=== PATIENT | male | born 1990 | race Two or more races ===

== ENCOUNTER 2024-10-01 00:58 | Emergency (ER) | payer MEDICAID, SELFPAY ==
[2024-10-01 01:03] VITALS: BMI 19.8
--- NOTE | 2024-10-01 01:31 | EKG_ITS ---
[facility] Test Date: 2024-10-01 Pat Name: BRYCE LEES Department: Room: - Gender: Male Corporate Legal Secretary: : 1990 Requested By: Sage Chacon Order Number: [id number] Reading MD: Sage Chacon Measurements Intervals [place] Rate: 101 P: 31 [place]: 140 QRS: 41 QRSD: 98 T: 59 QT: 361 QTc: 470 Interpretive Statements SINUS TACHYCARDIA ABNORMAL RHYTHM ECG No previous ECG available for comparison /store/S0/[id number].pdf
[2024-10-01 01:48] VITALS: BP 142/98; PULSE 119; RESP 18; TEMP 37; O2SAT 100
--- NOTE | 2024-10-01 02:02 | EDNOTE_ITS ---
ED Chest Pain RME/HPI General Chief Complaint: Chest Pain Stated Complaint: LT ARM PAIN, SHAKING, WEAK Time Seen by Provider: 10/01/24 02:01 Arrival date/time: 10/01/24 00:58 RME / HPI RME / HPI narrative: This section includes all my notes and documentations, including HPI, PE, and ED course. Alirio Duval MD HPI: 34yo male with no significant past medical history presents to the ED for a chief complaint of left arm pain. No radiation or migration. Patient states he started having significant left arm pain today, reporting he was anxious, so he came in for evaluation. He denies any fever, chills, chest pain or any other associated symptoms. No other complaints reported. ROS: All negative except as documented in HPI. Physical Exam: General: Alert and oriented. Appears anxious. Eyes: Conjunctivae and lids clear. ENT: No nasal congestion. Neck: Supple. Heart: Tachycardic. Lungs: No respiratory distress. Good air movement. No rhonchi, wheezing, rales. Abdomen: Soft and nontender. Legs: No clubbing, cyanosis, edema. Skin: Warm and dry. Neuro: Alert and oriented X 3. I reviewed all diagnostic test results. My interpretation of the EKG is sinus tachycardia with no acute ST?T changes. Blood tests and urine tests remarkable for methamphetamine on UDS. At this point, diagnoses include methamphetamine intoxication. Treatment here included Xanax. Significant improvement noted. Recommended more outpatient cardiac workup. Based on my best medical judgment, made decision no further evaluation or treatment indicated at this time. Patient understands and agrees to the discharge instructions customized and printed, see below. Discharge Instructions from Dr. Duval printed for you: 1. After extensive evaluation, there is no life-threatening condition. Such as heart attack. 2. But you need to stop methamphetamine and other drugs if applicable. Because you may not be cheryl next time. Methamphetamine causes heart attacks which are fatal. 3. See a private doctor on 10/03/2024. Ask for help to stop methamphetamine and other drugs if applicable. To make sure there is no serious underlying heart condition, ask to help you get more tests for your heart that cannot be done here in the ER. Such as Holter Monitor (cardiac monitoring at home from a day to even a month), heart stress test (on treadmill or with medication), echocardiogram (imaging of your heart structures), heart catherization (checking for blockages in your heart arteries), and a referral to see a Manager Of Financial. 4. Seek immediate medical care with worsening or with any concerns. Alirio Duval MD Related Data Allergies Allergy/AdvReac Type Severity Reaction Status Date / Time No Known Allergies Allergy Verified 10/01/24 01:01 Review of Systems Review of Systems Systems Reviewed: All systems reviewed, normal except as documented ED Exam Narrative Physical exam: As noted in HPI. Course Quality Measures none Orders Category Date Time Status Bedside COVID-19 Antigen Test NOW Care 10/01/24 02:21 Active Bedside Influenza A&B Antigen Test NOW Care 10/01/24 02:21 Completed EKG (ED ONLY) *Do not use* NOW Care 10/01/24 01:31 Completed Saline [Insert IV] NOW Care 10/01/24 02:02 Active Straight [In and Out Catheter] X1 Care 10/01/24 03:08 Active EKG (ED Only) Stat Exams 10/01/24 01:31 Draft BNP [B-Type Natriuretic Peptide] Stat Lab 10/01/24 02:16 Completed CBC Stat Lab 10/01/24 02:16 Completed CMP [Comprehensive Metabolic Panel] Stat Lab 10/01/24 02:16 Completed D-Dimer Stat Lab 10/01/24 02:16 Completed Drug Screen,Urine Stat Lab 10/01/24 03:16 Completed Magnesium Stat Lab 10/01/24 02:16 Completed TSH [Thyroid Stimulating Hormone] Stat Lab 10/01/24 02:16 Completed Troponin I Stat Lab 10/01/24 02:16 Completed ALPRazoLAM [Xanax] Med 10/01/24 02:21 Discontinued 0.5 mg PO X1 ONE KCL 10% Liq UDC 15 ML Med 10/01/24 03:08 Discontinued 40 meq PO X1 ONE Metoprolol Tartrate Inj [Lopressor Inj] Med 10/01/24 02:01 Discontinued 2.5 mg IVP X1 ONE Vital Signs Vital signs: Vital Signs Temperature 98.6 F 10/01/24 01:48 Pulse Rate 119 H 10/01/24 01:48 Respiratory Rate 18 10/01/24 01:48 Blood Pressure 142/98 H 10/01/24 01:48 Pulse Oximetry (%) 100 10/01/24 01:48 Oxygen Delivery Method Room Air 10/01/24 01:48 Chest Pain MDM Narrative MDM Narrative:: Scribe Attestation: 10/01/24 Marilu Jain am scribing for and in the presence of Dr. Duval. Patient data External records reviewed:: [facility] previous records (Per chart review, patient has no previous ED visits or admissions to this facility.) Clinical information provided by:: patient Social determinants that could affect healthcare access:: substance use Patient has the following chronic illnesses:: Drug abuse How is presenting disease/condition affected by chronic disease/condition?: exacerbated by Evaluation data The following diagnostics were reviewed and interpreted by me:: lab results, radiology exam(s) and EKG tracing(s) (My interpretation of the EKG is: Sinus tachycardia (144 bpm) with nonspecific ST-T changes. Alirio Duval MD) Lab and/or radiology exams considered but not ordered:: none Interpretation Summary: Methamphetamine tox occasion Medications / Prescriptions Medications or Prescriptions considered but not ordered:: None Medication administrations:: Medication Administration History Discontinued Medications Alprazolam (Alprazolam 0.25 Mg Tablet) 0.5 mg PO X1 ONE Stop: 10/01/24 02:22 Last Admin: 10/01/24 02:35 Dose: 0.5 mg Documented By: HAILE Metoprolol Tartrate (Metoprolol Tartrate Inj 1 Mg/Ml Amp 5 Ml) 2.5 mg IVP X1 ONE Stop: 10/01/24 02:02 Last Admin: 10/01/24 02:30 Dose: Not Given Documented By: TC Non-Admin Reason: Discontinued Potassium Chloride (Potassium Chloride 10% 20 Meq/15 Ml Udc) 40 meq PO X1 ONE Stop: 10/01/24 03:09 Last Admin: 10/01/24 03:27 Dose: 40 meq Documented By: HAILE Xanax and KCl Consultations Consultation(s) initiated? (list below): No Diagnosis Chest Pain Differential Diagnosis: stable angina, unstable angina pectoris, atypical chest pain, st elevation myocardial infarction, costochondritis and other (Anxiety, drug abuse) Most likely diagnosis given after review of the tests above:: Methamphetamine tox occasion Admission Indicated Admission indicated?: not indicated Explain why admission is indicated or not indicated:: No criteria for admission Admission Request Was there a request for admission?: No Disposition Plan Disposition Plan: Discharge Discharge Attestation Discharge Attestation: The patient and all family members were given an opportunity to ask questions and understood the discharge instructions. Discharge instructions specifically effects, indications for sooner follow up or return to the emergency department, and the expected course of current diagnosis. Patient condition: Stable Discharge Plan Plan Patient Disposition: HOME (Self Care) Prescriptions/Referrals Referrals: Pepe Dutton MD [Primary Care Provider] - In 1 week Problem List Clinical Impression: Methamphetamine intoxication Patient/Caregiver Discharge Instructions Discharge Activity: activity as tolerated Education Materials: Understanding Methamphetamine ..., ED Drug Abuse Additional Instructions: Discharge Instructions from Dr. Duval printed for you: 1. After extensive evaluation, there is no life-threatening condition. Such as heart attack. 2. But you need to stop methamphetamine and other drugs if applicable. Because you may not be cheryl next time. Methamphetamine causes heart attacks which are fatal. 3. See a private doctor on 10/03/2024. Ask for help to stop methamphetamine and other drugs if applicable. To make sure there is no serious underlying heart condition, ask to help you get more tests for your heart that cannot be done here in the ER. Such as Holter Monitor (cardiac monitoring at home from a day to even a month), heart stress test (on treadmill or with medication), echocardiogram (imaging of your heart structures), heart catherization (checking for blockages in your heart arteries), and a referral to see a Manager Of Financial. 4. Seek immediate medical care with worsening or with any concerns. Print Language: Cook Islander Stand Alone Forms: Priyanka Award Info., Patient Portal Info Letter
[2024-10-01] MEDS: ALPRazoLAM 0.25 MG TABLET 0.5 MG PO (02:35)
[2024-10-01 02:38] VITALS: BP 125/98; PULSE 111; RESP 20; O2SAT 98
[2024-10-01 03:04] LABS: Alanine Aminotransferase 18 U/L (10-49); Albumin, Serum 4.8 gm/dL (3.5-5.0); Albumin/Globulin Ratio 1.7 (1.2-2.2); Alkaline Phosphatase 131 U/L (46-116); Anion Gap 13 (7-16); Aspartate Amino Transferase 16 U/L (0-34); BUN/Creatinine Ratio 13 Ratio (12-20); Bilirubin,Total 0.8 mg/dL (0.3-1.2); Blood Urea Nitrogen 12 mg/dL (9-23); Calcium 9.9 mg/dL (8.3-10.6); Calcium (Corrected) 9.9 mg/dL (8.5-10.1); Carbon Dioxide 21.9 mMol/L (20.0-31.0); Chloride 104 mMol/L (98-107); Creatinine (Component) 0.9 mg/dL (0.6-1.3); Estimated Creatinine Clearance 83.3 mL/min (>60); Globulin 2.8 gm/dL (2.3-3.5); Glucose 144 mg/dL (74-106); Magnesium 2.1 mg/dL (1.6-2.6); Osmolality,Calculated 280 (275-295); Potassium 3.3 mMol/L (3.4-5.1); Sodium 139 mMol/L (136-145); Thyroid Stimulating Hormone 0.91 uIU/mL (0.55-4.78); Total Protein 7.6 gm/dL (5.7-8.2); Troponin I < 0.002 ng/mL (0.0-0.045); eGFR > 60 See Note
[2024-10-01 03:18] LABS: Basophils # (Auto) 0.1 Thou/mm3 (0.0-0.2); Basophils % (Auto) 1 % (0-2.5); Eosinophils # (Auto) 0.2 Thou/mm3 (0.0-0.5); Eosinophils % (Auto) 2 % (0-10); Hematocrit 45.2 % (41.0-53.0); Hemoglobin 15.8 g/dL (13.5-16.0); Immature Granulocytes % (Auto) 1 % (0-0); Immature Granulocytes Auto 0.04 Thou/mm3 (0.00-0.00); Lymphocytes # (Auto) 3.1 Thou/mm3 (1.0-4.8); Lymphocytes % (Auto) 36 % (10-50); Mean Corpuscular Hemoglobin 30.4 pg (25.0-35.0); Mean Corpuscular Volume 87 fL (80-100); Monocytes # (Auto) 0.8 Thou/mm3 (0.0-0.8); Monocytes % (Auto) 9 % (0-12); Neutrophils # (Auto) 4.4 Thou/mm3 (1.8-7.7); Neutrophils % (Auto) 52 % (37-80); Nucleated Red Blood Cell % 0 /100 WBC (0); Platelet Count 372 Thou/mm3 (140-440); RDW Standard Deviation 41.5 fL (35.1-43.9); White Blood Count 8.4 Thou/mm3 (3.8-10.6)
[2024-10-01] MEDS: POTASSIUM CHLORIDE 10% 20 MEQ/15 ML UDC 40 MEQ PO (03:27)
[2024-10-01 04:03] LABS: D-Dimer < 250 ng/mL (<600)
[2024-10-01 04:58] LABS: Amphetamine/Methamp Scrn,U Positive (Negative); Barbiturate Screen,Urine Negative (Negative); Benzodiazepines Screen,Urine Negative (Negative); Benzoylecgonine Screen, Ur Negative (Negative); Fentanyl Screen,Urine Negative (Negative); Opiate Screen,Urine Negative (Negative); THC Screen,Urine Negative (Negative)
[2024-10-01 04:58] LABS: B-Type Natriuretic Peptide < 20 pg/mL (0-100)
[2024-10-01 05:30] VITALS: BP 108/78; PULSE 88; RESP 18; TEMP 37.1; O2SAT 95
[2024-10-01 06:04] VITALS: PULSE 82; RESP 20; O2SAT 100
== END 2024-10-01 06:04 | disposition home or self-care (01) ==
PROVIDERS: Emergency Provider Emergency Medicine; PCP Family Medicine
DX: F15.129 Other stimulant abuse with intoxication, unspecified (principal); R00.0 Tachycardia, unspecified
CPT/HCPCS: 36415; 80053; 80307; 83735; 83880; 84443; 84484; 85025; 85379; 87400; 87811; 93005; 99283; A9270